=== PATIENT | male | born 1945 | race African-American/Black ===

== ENCOUNTER 2017-08-22 22:36 | Inpatient (IN) | payer OTHER, MEDICARE ==
[~2017-08-22] VITALS: Ht 182.9 cm; Wt 77.1 kg
[2017-08-22] MEDS ORDERED: ACET325C PO (22:55)
[2017-08-22] MEDS ORDERED: RISP0.5T5 PO (22:55)
[2017-08-22] MEDS ORDERED: LEVE500T20 PO (22:55)
[2017-08-22] MEDS ORDERED: ACET325T53 PO (22:55)
[2017-08-22] MEDS ORDERED: THIA100T13 PO (22:55)
[2017-08-22 23:25] LABS: BASOPHILS % (AUTO) 0.5 % (0.0-2.0); EOSINOPHILS # (AUTO) 0.1 K/uL (0.0-0.7); EOSINOPHILS % (AUTO) 1.5 % (0.0-7.0); HEMATOCRIT 43.6 % (40-50); HEMOGLOBIN 14.2 G/DL (14.0-18.0); LYMPHOCYTES % (AUTO) 37.8 % (20.5-51.5); MEAN CORPUSCULAR HEMOGLOBIN 30.4 UUG (27.0-31.0); MEAN CORPUSCULAR HGB CONC 33 g/dL (32.0-37.0); MEAN CORPUSCULAR VOLUME 93.6 FL (82.0-92.0); MONOCYTES # (AUTO) 0.4 K/UL (0.1-1.30); MONOCYTES % (AUTO) 7.6 % (0.0-11.0); NEUTROPHILS # (AUTO) 2.7 K/UL (1.8-8.9); NEUTROPHILS % (AUTO) 52.6 % (38.5-71.5); PLATELET COUNT (AUTO) 290 K/UL (150-450); RED BLOOD CELL COUNT(AUTO) 4.66 MIL/UL (4.7-6.1); WHITE BLOOD COUNT (AUTO) 5.2 K/UL (4.0-11.2)
[2017-08-22 23:33] LABS: *BILIRUBIN,URIN NEGATIVE (NEGATIVE); *BLOOD, URINE 2+ (NEGATIVE); *CLARITY,URINE CLOUDY (CLEAR); *COLOR,URINE YELLOW (YELLOW); *KETONES,URINE TRACE (NEGATIVE); *PROTEIN,URINE NEGATIVE (NEGATIVE); *UROBILINOGEN,URINE 0.2 E.U./dl (NORMAL); LEUKOCYTE ESTERASE ,URINE TRACE (NEGATIVE); NITRITE, URINE POSITIVE (NEGATIVE); UGLUCOSE NEGATIVE (NEGATIVE)
[2017-08-22 23:34] LABS: CARBON DIOXIDE 28 mmol/L (21-32); CHLORIDE 103 mmol/L (98-107); CREATININE 1.4 mg/dL (0.6-1.3); GLUCOSE 88 mg/dL (74-106); POTASSIUM 3.8 mmol/L (3.5-5.1); UREA NITROGEN, BLOOD 16 mg/dL (7-18)
[2017-08-22 23:36] LABS: BACTERIA,URINE MANY /HPF (NONE SEEN); SQUAMOUS EPITHELIAL CELL,UR MODERATE /HPF (NONE SEEN)
[2017-08-22 23:46] LABS: ALANINE AMINOTRANSFERASE 20 U/L (16-63); ALKALINE PHOSPHATASE 117 U/L (50-136); ASPARTATE AMINOTRANSFERASE 13 U/L (15-37); BILIRUBIN,DIRECT 0.1 mg/dL (0.0-0.2); BILIRUBIN,TOTAL 0.3 mg/dL (0.2-1.0)
[2017-08-23] MEDS ORDERED: CEFTRIAXONE 1 G in IV DEXTROSE 5% 50 ML IV ONE ×2
[2017-08-23] MEDS ORDERED: CEFTRIAXONE 1 G VIAL ONE (00:09)
[2017-08-23] MEDS ORDERED: ZOLPIDEM 5 MG TABLET PO PRN (00:15)
[2017-08-23] MEDS ORDERED: ONDANSETRON 4 MG/2 ML VIAL IV PRN (00:15)
[2017-08-23] MEDS ORDERED: MAGNESIUM HYDROXIDE 30 ML LIQUID UDC PO PRN (00:15)
[2017-08-23] MEDS ORDERED: Z GUARD REMEDY PASTE 57 GM TUBE TOP PRN (00:15)
[2017-08-23] MEDS: CEFTRIAXONE 1 G in IV DEXTROSE 5% 50 ML IV SCH ×2 (00:15→23:15)
[2017-08-23] MEDS ORDERED: HYDROCODONE/APAP 5-325MG TABLET PO PRN (00:15)
[2017-08-23] MEDS ORDERED: LORAZEPAM 2 MG/1 ML VIAL IV PRN (00:15)
[2017-08-23] MEDS ORDERED: ACETAMINOPHEN 325 MG TABLET PO PRN (00:15)
[2017-08-23] MEDS: IV NS 1000 ML 1,000 ML IV PRN ×2 (01:00→14:57)
[2017-08-23] MEDS: ENOXAPARIN SODIUM 40 MG/0.4 ML DISP.SYRIN SQ SCH ×2 (01:00→01:05)
[2017-08-23] MEDS ORDERED: ENOXAPARIN SODIUM 40 MG/0.4 ML DISP.SYRIN SQ ONE (01:16)
[2017-08-23 01:30] VITALS: BP 107/73
[2017-08-23 04:40] VITALS: BP 120/72
[2017-08-23] MEDS: LEVETIRACETAM 500 MG TABLET PO SCH ×2 (08:49→21:03)
[2017-08-23] MEDS: risperiDONE 0.5 MG TABLET PO SCH ×2 (08:49→21:03)
[2017-08-23] MEDS: THIAMINE HCL 100 MG TABLET PO SCH (08:49)
[2017-08-23] MEDS: PANTOPRAZOLE SODIUM 40 MG TABLET.DR PO SCH (08:49)
[2017-08-23 11:33] VITALS: BP 102/65
[2017-08-23 15:23] VITALS: BP 92/59
[2017-08-23 20:30] VITALS: BP 95/61
[2017-08-24 04:00] VITALS: BP 99/55
[2017-08-24] MEDS: IV NS 1000 ML 1,000 ML IV PRN ×2 (04:17→17:29)
[2017-08-24] MEDS: PANTOPRAZOLE SODIUM 40 MG TABLET.DR PO SCH (06:01)
[2017-08-24] MEDS: LEVETIRACETAM 500 MG TABLET PO SCH ×2 (08:11→20:05)
[2017-08-24] MEDS: THIAMINE HCL 100 MG TABLET PO SCH (08:11)
[2017-08-24] MEDS: risperiDONE 0.5 MG TABLET PO SCH ×2 (08:11→20:05)
[2017-08-24] MEDS: ENOXAPARIN SODIUM 40 MG/0.4 ML DISP.SYRIN SQ SCH (08:14)
[2017-08-24 11:04] VITALS: BP 104/67
[2017-08-24 15:22] VITALS: BP 101/61
[2017-08-24 19:20] VITALS: BP 104/59
[2017-08-24] MEDS: CEFTRIAXONE 1 G in IV DEXTROSE 5% 50 ML IV SCH (23:23)
[2017-08-25] MEDS: PANTOPRAZOLE SODIUM 40 MG TABLET.DR PO SCH (06:08)
[2017-08-25 06:22] VITALS: BP 129/77
[2017-08-25] MEDS: risperiDONE 0.5 MG TABLET PO SCH ×2 (09:17→20:04)
[2017-08-25] MEDS: ENOXAPARIN SODIUM 40 MG/0.4 ML DISP.SYRIN SQ SCH (09:18)
[2017-08-25] MEDS: THIAMINE HCL 100 MG TABLET PO SCH (09:18)
[2017-08-25] MEDS: LEVETIRACETAM 500 MG TABLET PO SCH ×2 (09:19→20:04)
[2017-08-25 11:24] VITALS: BP 104/66
[2017-08-25 15:26] VITALS: BP 96/59
[2017-08-25] MEDS: IV NS 1000 ML 1,000 ML IV PRN (19:23)
[2017-08-25 20:20] VITALS: BP 99/60
[2017-08-25] MEDS: CEFTRIAXONE 1 G in IV DEXTROSE 5% 50 ML IV SCH (23:21)
[2017-08-26 05:50] VITALS: BP 100/64
[2017-08-26] MEDS: PANTOPRAZOLE SODIUM 40 MG TABLET.DR PO SCH (06:00)
[2017-08-26] MEDS: risperiDONE 0.5 MG TABLET PO SCH ×2 (08:25→20:24)
[2017-08-26] MEDS: THIAMINE HCL 100 MG TABLET PO SCH (08:25)
[2017-08-26] MEDS: ENOXAPARIN SODIUM 40 MG/0.4 ML DISP.SYRIN SQ SCH (08:29)
[2017-08-26] MEDS: LEVETIRACETAM 500 MG TABLET PO SCH ×2 (08:31→20:24)
[2017-08-26] MEDS: IV NS 1000 ML 1,000 ML IV PRN (09:17)
[2017-08-26 11:36] VITALS: BP 110/70
[2017-08-26 15:30] VITALS: BP 113/76
[2017-08-26] MEDS ORDERED: ZOLP5TAB8 PO (15:49)
[2017-08-26] MEDS ORDERED: CEPH-570 PO (15:49)
[2017-08-26] MEDS ORDERED: ACID1TAB4 PO (15:49)
[2017-08-26 20:09] VITALS: BP 112/67
[2017-08-27 04:59] VITALS: BP 97/62
[2017-08-27] MEDS: PANTOPRAZOLE SODIUM 40 MG TABLET.DR PO SCH (06:09)
[2017-08-27] MEDS: LEVETIRACETAM 500 MG TABLET PO SCH (08:23)
[2017-08-27] MEDS: THIAMINE HCL 100 MG TABLET PO SCH (08:24)
[2017-08-27] MEDS: risperiDONE 0.5 MG TABLET PO SCH (08:24)
[2017-08-27] MEDS: ENOXAPARIN SODIUM 40 MG/0.4 ML DISP.SYRIN SQ SCH ×2 (08:25→08:31)
[2017-08-27 11:06] VITALS: BP 111/69
[2017-08-27 15:00] VITALS: BP 95/56
== END 2017-08-27 16:45 | DRG 463 ==
LOC: ER 22:38 → MED 08-23 00:07
PROVIDERS: ADMIT Internal Medicine; ATTEND Internal Medicine
DX: N30.90 Cystitis, unspecified without hematuria (principal); N17.0 Acute kidney failure with tubular necrosis; G93.40 Encephalopathy, unspecified; D68.59 Other primary thrombophilia; R13.10 Dysphagia, unspecified; G62.9 Polyneuropathy, unspecified; F03.90 Unspecified dementia, unspecified severity, without behavioral disturbance, psychotic disturbance, mood disturbance, and anxiety; F20.9 Schizophrenia, unspecified; Z18.10 Retained metal fragments, unspecified; G40.909 Epilepsy, unspecified, not intractable, without status epilepticus; H54.8 Legal blindness, as defined in USA; Z74.09 Other reduced mobility; F19.11 Other psychoactive substance abuse, in remission; Z86.19 Personal history of other infectious and parasitic diseases; N42.9 Disorder of prostate, unspecified; E53.8 Deficiency of other specified B group vitamins; Z87.891 Personal history of nicotine dependence; Z79.899 Other long term (current) drug therapy; T14.90XS Injury, unspecified, sequela; W34.00XS Accidental discharge from unspecified firearms or gun, sequela; M51.37 Other intervertebral disc degeneration, lumbosacral region
CPT/HCPCS: 36415; 70030-TC; 71010; 72100; 85025; 85730; 87040; 87086; 93005; A4663; J0696; J1650; J7030; J7060